=== PATIENT | male | born 1965 | race Two or more races ===

== ENCOUNTER 2020-01-29 08:14 | Outpatient (CLI) | payer OTHER ==
[2020-02-01] MEDS ORDERED: PROGRAF1 MG PO (11:25)
[2020-02-01] MEDS ORDERED: COZAAR100 MG PO (11:25)
== END 2020-01-29 09:10 | disposition home or self-care (01) ==
LOC: LAB 08:14
PROVIDERS: ATTEND Surgery
DX: Z20.828 Contact with and (suspected) exposure to other viral communicable diseases (principal); R05 Cough

== ENCOUNTER 2020-02-03 06:10 | Day surgery (SDC) | payer OTHER ==
[~2020-02-03 06:10] MED LIST: COZAAR100 MG PO; PROGRAF1 MG PO
[2020-02-03] MEDS ORDERED: PERCOCET 5-3251 EACH PO (12:12)
== END 2020-02-03 14:40 | disposition home or self-care (01) ==
LOC: CIR.AMB 06:10
PROVIDERS: ATTEND Surgery
DX: D35.1 Benign neoplasm of parathyroid gland (principal)